=== PATIENT | male | born 1965 | race Caucasian/White ===

== ENCOUNTER 2020-06-23 16:03 | Outpatient (REF) | payer OTHER, SELFPAY ==
[2020-06-23 21:38] LABS: Hemoglobin A1C 9.5 % (3.8-5.6)
[2020-06-23 21:40] LABS: ALT 44 U/L (16-63); AST 35 U/L (15-37); Alkaline Phosphatase 68 U/L (46-116); Anion Gap 11.4 mmol/L (3-11); BUN 13 mg/dL (7-18); Bilirubin, Total 0.5 mg/dL (0.2-1.0); CO2 25.6 mmol/L (21.0-32.0); CREATININE 0.87 mg/dL (0.70-1.30); Calcium 9.2 mg/dL (8.5-10.1); Chloride 102 mmol/L (98-107); Glucose 138 mg/dL (74-106); Potassium 3.8 mmol/L (3.5-5.1); Sodium 139 mmol/L (136-145); TSH 2.21 uIU/mL (0.36-3.74); Total Protein 7.5 g/dL (6.4-8.2)
[2020-06-23 21:46] LABS: COMMENT (LAB VIEW ONLY) 52.46 mg/dL; Microalb ug/mg Crea 10.9 ug/mg Cr
[2020-06-26 08:42] LABS: PSA, Screening 0.8 ng/mL (0.0-3.5)
== END 2020-06-23 16:23 ==
LOC: NCHCN 16:03
PROVIDERS: PCP Physician Assistant; Visit Provider Physician Assistant
DX: Z00.00 Encounter for general adult medical examination without abnormal findings (principal); I10 Essential (primary) hypertension; E11.9 Type 2 diabetes mellitus without complications; E78.5 Hyperlipidemia, unspecified; Z12.5 Encounter for screening for malignant neoplasm of prostate
CPT/HCPCS: 80053; 84153; 82043; 82570; 83036; 84439; 84443